=== PATIENT | female | born 1940 | race Caucasian/White ===

== ENCOUNTER 2019-01-29 01:51 | Inpatient (IN) ==
[2019-01-29 02:42] LABS: Basophils # 0.1 10*3/uL (0.0-0.2); Basophils % 0.5 % (0.0-0.8); Eosinophils # 0.1 10*3/uL (0.0-0.87); Eosinophils % 0.6 % (0.00-10.9); Hematocrit 41.9 VOL% (35.7-47.0); Hemoglobin 13.2 GM/DL (12.0-16.0); Immature Granulocytes % 0.5 %; Immature Granulocytes Absolute 0.09 #; Lymphocytes # 1.1 10*3/uL (1.4-4.0); Mean Corpuscular HGB Conc 31.5 GM/DL (32-36); Mean Corpuscular Volume 99.8 FL (87-102); Mean Platelet Volume 11.5 FL (9.6-12.0); Monocytes % 2.6 % (1.7-12.7); Neutrophils % 89.8 % (38.7-73.9); Platelet Count 229 T/CUMM (130-400); Red Cell Distribution Width 13.2 % (9.3-17.3); White Blood Count 18.6 T/CUMM (4-12)
[2019-01-29 02:55] LABS: INR 0.9; Partial Thromboplastin Time 24.4 SECS (0-40)
[2019-01-29 03:00] LABS: Alanine Aminotransferase 43 U/L (13-56); Albumin 4.6 G/DL (3.4-5.0); Alkaline Phosphatase 32 U/L (45-117); Aspartate Amino Transferase 18 U/L (0-37); Blood Urea Nitrogen 30 MG/DL (7-18); Glucose 120 MG/DL (74-106); Osmolality,Calculated 283.5 MOS/KG (273-304); Total Protein 7.6 G/DL (6.4-8.3)
[2019-01-29] MEDS ORDERED: cefTRIAXone 250 MG VIAL IV STA (03:02)
[2019-01-29] MEDS ORDERED: cefTRIAXone 1,000 MG VIAL ONE (03:31)
[2019-01-29 03:32] LABS: Apearance,Urine CLEAR (Clear); Bacteria,Urine Few /HPF (Few); Bilirubin,Urine Negative (Negative); Blood, Urine Negative (Negative); Glucose,Urine (UA) Negative (Negative); Ketones,Urine Negative (Negative); Nitrite,Urine Negative (Negative); Protein,Urine Negative; RBC,Urine 5 /HPF (0-4); Squamous Epithelial Cell,Urine Occasional /HPF (0-10); Urine Color Yellow (Yellow); Urine Specific Gravity 1.014 (1.001-1.035); Urine Urobilinogen < 2.0 EU/DL (0.2-1.0); WBC,Urine 56 /HPF (0-6)
[2019-01-29] MEDS ORDERED: ONDANSETRON 4 MG/2 ML VIAL IV PRN (04:04)
[2019-01-29] MEDS ORDERED: ACETAMINOPHEN 325 MG TABLET PO PRN (04:04)
[2019-01-29] MEDS: SODIUM CHLORIDE 0.9% 1,000 ML IV SCH ×2 (06:02→14:53)
[2019-01-29] MEDS: PANTOPRAZOLE 40 MG TABLET PO SCH (08:55)
[2019-01-29] MEDS: DOCUSATE SODIUM 100 MG CAPSULE PO SCH ×2 (08:55→21:13)
[2019-01-29] MEDS ORDERED: cefTRIAXone 1,000 MG in SYRINGE 1 EACH IV SCH (09:00)
[2019-01-29] MEDS: MEROPENEM 1,000 MG in SODIUM CHLORIDE 0.9% 100 ML IV SCH ×2 (11:29→18:13)
[2019-01-29] MEDS: NIACIN ER 500 MG TABLET PO SCH (21:13)
[2019-01-29] MEDS: ZALEPLON 5 MG CAPSULE PO PRN (21:13)
[2019-01-29] MEDS: FLUTICASONE/SALMETEROL 250-50 DISKUS 14 DOSE INH SCH (21:14)
[2019-01-29] MEDS: MONTELUKAST 10 MG TABLET PO SCH (21:14)
[2019-01-29] MEDS: METHENAMINE HIPPURATE 1 GM TABLET PO SCH (21:14)
[2019-01-29] MEDS: CARVEDILOL 25 MG TABLET PO SCH (21:14)
[2019-01-30] MEDS: SODIUM CHLORIDE 0.9% 1,000 ML IV SCH ×3 (00:51→21:23)
[2019-01-30] MEDS: MEROPENEM 1,000 MG in SODIUM CHLORIDE 0.9% 100 ML IV SCH ×3 (03:14→20:40)
[2019-01-30 05:58] LABS: Basophils # 0.1 10*3/uL (0.0-0.2); Basophils % 0.5 % (0.0-0.8); Eosinophils # 0.4 10*3/uL (0.0-0.87); Eosinophils % 2.4 % (0.00-10.9); Hematocrit 34.1 VOL% (35.7-47.0); Hemoglobin 10.8 GM/DL (12.0-16.0); Immature Granulocytes % 0.5 %; Immature Granulocytes Absolute 0.07 #; Lymphocytes # 1.7 10*3/uL (1.4-4.0); Lymphocytes % 11.9 % (21.3-54.2); Mean Corpuscular HGB Conc 31.7 GM/DL (32-36); Mean Corpuscular Volume 101.2 FL (87-102); Mean Platelet Volume 11.6 FL (9.6-12.0); Monocytes % 5.4 % (1.7-12.7); Neutrophils % 79.3 % (38.7-73.9); Platelet Count 186 T/CUMM (130-400); Red Blood Count 3.37 MC/CUMM (3.8-5.5); Red Cell Distribution Width 13.6 % (9.3-17.3); White Blood Count 14.6 T/CUMM (4-12)
[2019-01-30 06:20] LABS: Alanine Aminotransferase 26 U/L (13-56); Albumin 3.3 G/DL (3.4-5.0); Alkaline Phosphatase 31 U/L (45-117); Aspartate Amino Transferase 9 U/L (0-37); Bilirubin,Total < 0.39 MG/DL (0.2-1.0); Blood Urea Nitrogen 18 MG/DL (7-18); Calcium 8.8 MG/DL (8.5-10.1); Glucose 116 MG/DL (74-106); Osmolality,Calculated 281.4 MOS/KG (273-304)
[2019-01-30] MEDS: LEVOTHYROXINE 50 MCG TABLET PO SCH (06:30)
[2019-01-30] MEDS: PANTOPRAZOLE 40 MG TABLET PO SCH (08:31)
[2019-01-30] MEDS: METHENAMINE HIPPURATE 1 GM TABLET PO SCH ×2 (08:31→20:40)
[2019-01-30] MEDS: hydroCHLOROthiazide 25 MG TABLET PO SCH (08:31)
[2019-01-30] MEDS: ATORVASTATIN 10 MG TABLET PO SCH (08:31)
[2019-01-30] MEDS: CARVEDILOL 25 MG TABLET PO SCH ×2 (08:31→20:40)
[2019-01-30] MEDS: sitaGLIPtin 100 MG TABLET PO SCH (08:32)
[2019-01-30] MEDS: GLIMEPIRIDE 2 MG TABLET PO SCH (08:32)
[2019-01-30] MEDS: DOCUSATE SODIUM 100 MG CAPSULE PO SCH ×2 (08:33→20:40)
[2019-01-30] MEDS: amLODIPine 10 MG TABLET PO SCH (08:33)
[2019-01-30] MEDS: FENOFIBRATE 145 MG TABLET PO SCH (08:33)
[2019-01-30] MEDS: LOSARTAN 50 MG TABLET PO SCH (08:33)
[2019-01-30] MEDS: ASPIRIN EC 81 MG TABLET PO SCH (08:33)
[2019-01-30] MEDS: FLUTICASONE/SALMETEROL 250-50 DISKUS 14 DOSE INH SCH ×2 (08:34→20:43)
[2019-01-30] MEDS: MONTELUKAST 10 MG TABLET PO SCH (20:40)
[2019-01-30] MEDS: NIACIN ER 500 MG TABLET PO SCH (20:40)
[2019-01-30] MEDS: ZALEPLON 5 MG CAPSULE PO PRN (20:40)
[2019-01-31 05:14] LABS: Basophils # 0.1 10*3/uL (0.0-0.2); Basophils % 0.7 % (0.0-0.8); Eosinophils # 0.4 10*3/uL (0.0-0.87); Eosinophils % 2.9 % (0.00-10.9); Hematocrit 39.2 VOL% (35.7-47.0); Hemoglobin 12.7 GM/DL (12.0-16.0); Immature Granulocytes % 0.7 %; Immature Granulocytes Absolute 0.09 #; Lymphocytes # 2.4 10*3/uL (1.4-4.0); Lymphocytes % 19.2 % (21.3-54.2); Mean Corpuscular HGB Conc 32.4 GM/DL (32-36); Mean Platelet Volume 12.4 FL (9.6-12.0); Monocytes % 7.2 % (1.7-12.7); Neutrophils % 69.3 % (38.7-73.9); Platelet Count 226 T/CUMM (130-400); Red Blood Count 3.96 MC/CUMM (3.8-5.5); Red Cell Distribution Width 13.4 % (9.3-17.3); White Blood Count 12.3 T/CUMM (4-12)
[2019-01-31] MEDS: MEROPENEM 1,000 MG in SODIUM CHLORIDE 0.9% 100 ML IV SCH ×3 (06:15→20:32)
[2019-01-31] MEDS: LEVOTHYROXINE 50 MCG TABLET PO SCH (07:08)
[2019-01-31] MEDS: hydroCHLOROthiazide 25 MG TABLET PO SCH (08:13)
[2019-01-31] MEDS: PANTOPRAZOLE 40 MG TABLET PO SCH (08:13)
[2019-01-31] MEDS: CARVEDILOL 25 MG TABLET PO SCH ×2 (08:13→20:33)
[2019-01-31] MEDS: FENOFIBRATE 145 MG TABLET PO SCH (08:13)
[2019-01-31] MEDS: amLODIPine 10 MG TABLET PO SCH (08:13)
[2019-01-31] MEDS: ATORVASTATIN 10 MG TABLET PO SCH (08:13)
[2019-01-31] MEDS: LOSARTAN 50 MG TABLET PO SCH (08:14)
[2019-01-31] MEDS: GLIMEPIRIDE 2 MG TABLET PO SCH (08:14)
[2019-01-31] MEDS: METHENAMINE HIPPURATE 1 GM TABLET PO SCH ×2 (08:14→20:33)
[2019-01-31] MEDS: sitaGLIPtin 100 MG TABLET PO SCH (08:14)
[2019-01-31] MEDS: DOCUSATE SODIUM 100 MG CAPSULE PO SCH ×2 (08:14→20:33)
[2019-01-31] MEDS: ASPIRIN EC 81 MG TABLET PO SCH (08:14)
[2019-01-31] MEDS: FLUTICASONE/SALMETEROL 250-50 DISKUS 14 DOSE INH SCH ×2 (08:18→20:34)
[2019-01-31] MEDS: SODIUM CHLORIDE 0.9% 1,000 ML IV SCH (11:27)
[2019-01-31] MEDS: MONTELUKAST 10 MG TABLET PO SCH (20:33)
[2019-01-31] MEDS: NIACIN ER 500 MG TABLET PO SCH (20:33)
[2019-01-31] MEDS: ZALEPLON 5 MG CAPSULE PO PRN (20:33)
[2019-02-01] MEDS: SODIUM CHLORIDE 0.9% 1,000 ML IV SCH (04:30)
[2019-02-01] MEDS: MEROPENEM 1,000 MG in SODIUM CHLORIDE 0.9% 100 ML IV SCH ×2 (05:10→12:14)
[2019-02-01] MEDS: LEVOTHYROXINE 50 MCG TABLET PO SCH (06:09)
[2019-02-01] MEDS: LOSARTAN 50 MG TABLET PO SCH (08:34)
[2019-02-01] MEDS: hydroCHLOROthiazide 25 MG TABLET PO SCH (08:34)
[2019-02-01] MEDS: amLODIPine 10 MG TABLET PO SCH (08:35)
[2019-02-01] MEDS: sitaGLIPtin 100 MG TABLET PO SCH (08:35)
[2019-02-01] MEDS: DOCUSATE SODIUM 100 MG CAPSULE PO SCH (08:35)
[2019-02-01] MEDS: ATORVASTATIN 10 MG TABLET PO SCH (08:35)
[2019-02-01] MEDS: METHENAMINE HIPPURATE 1 GM TABLET PO SCH (08:35)
[2019-02-01] MEDS: FENOFIBRATE 145 MG TABLET PO SCH (08:35)
[2019-02-01] MEDS: GLIMEPIRIDE 2 MG TABLET PO SCH (08:35)
[2019-02-01] MEDS: ASPIRIN EC 81 MG TABLET PO SCH (08:35)
[2019-02-01] MEDS: CARVEDILOL 25 MG TABLET PO SCH (08:36)
[2019-02-01] MEDS: FLUTICASONE/SALMETEROL 250-50 DISKUS 14 DOSE INH SCH (08:36)
[2019-02-01] MEDS: PANTOPRAZOLE 40 MG TABLET PO SCH (08:36)
[2019-02-01 11:57] VITALS: BP 151/78
[2019-02-01] MEDS ORDERED: ERTAPENEM 1,000 MG in SODIUM CHLORIDE 0.9% 100 ML IV ONE (15:00)
== END 2019-02-01 16:07 | disposition home or self-care (01) | DRG 690 ==
LOC: N.ED 01:51 → N.EDINP 04:02 → N.2E 04:20
PROVIDERS: ADMIT Family Medicine; ATTEND Family Medicine